=== PATIENT | female | born 1990 | race Caucasian/White ===

== ENCOUNTER 2016-12-19 12:54 | Emergency (ER) | payer BC ==
--- NOTE | 2016-12-19 13:47 | ED ---
Headache - HPI Summary HPI Summary: 26 yr old female who states she is under a lot of stress with relationship. She states she was having trouble driving earlier due to dizziness described as room spinning. She states she has had blurred vision, room spinning and headache. She states she is very anxious as well. She denies prior medical history except for dizziness. No other complaints. Denies palpitations, shortness of breath. Denies feeling like she will pass out. - History Of Current Complaint Chief Complaint: UCGeneralIllness Stated Complaint: HEADACHE ANXIETY Time Seen by Provider: 12/19/16 13:25 Hx Last Menstrual Period: 12/08/16 - Allergies/Home Medications Allergies/Adverse Reactions: Allergies Allergy/AdvReac Type Severity Reaction Status Date / Time Amoxicillin Allergy Hives Verified 12/19/16 13:05 Meperidine [From Demerol HCl] Allergy Hives Verified 12/19/16 13:05 Home Medications: Home Medications Control Pill 1 tab PO DAILY 12/19/16 [History Confirmed 12/19/16] PMH/Surg Hx/FS Hx/Imm Hx - Surgical History Surgery Procedure, Year, and Place: [facility] 2010 Infectious Disease History: No Infectious Disease History: Denies: Traveled Outside the [place] in Last 30 Days - Social History Alcohol Use: Rare Substance Use Type: Reports: None Smoking Status (MU): Never Smoked Tobacco Review of Systems Constitutional: Negative Positive: Blurred Vision Neurological: Other - dizziness like room spinning. Positive: Headache Positive: Anxious All Other Systems Reviewed And Are Negative: Yes Physical Exam Triage Information Reviewed: Yes Vital Signs On Initial Exam: Initial Vitals Temp Pulse Resp BP Pulse Ox 98.2 F 93 20 148/98 99 12/19/16 12:57 12/19/16 12:57 12/19/16 12:57 12/19/16 12:57 12/19/16 12:57 Vital Signs Reviewed: Yes Appearance: Positive: No Pain Distress, Well-Nourished Skin: Positive: Warm Head/Face: Positive: Normal Head/Face Inspection Eyes: Positive: EOMI, MELISSA ENT: Positive: Normal ENT inspection Neck: Positive: Supple, Nontender Respiratory/Lung Sounds: Positive: Other - normal effort Musculoskeletal: Positive: Strength/ROM Intact Neurological: Positive: Sensory/Motor Intact, Alert, Oriented to Person Place, Time, CN Intact II-III, Normal Gait, Speech Normal Psychiatric: Positive: Anxious, Other - tearful - [place] Coma Scale Best Eye Response: 4 - Spontaneous Best Motor Response: 6 - Obeys Commands Best Verbal Response: 5 - Oriented Diagnostics - Vital Signs Vital Signs Temp Pulse Resp BP Pulse Ox 12/19/16 12:57 98.2 F 93 20 148/98 99 - Laboratory Lab Statement: Any lab studies that have been ordered have been reviewed, and results considered in the medical decision making process. Headache Course/Dx - Course Course Of Treatment: 26 yr old with tearfulness, anxiety, and symtpoms of headache, room spinning, blurred vision. The patient refuses to go to the ER for further work up and evaluation. She signed out AMA with risk of stroke, disability, . She states she feels safe at home and does not feel in danger. - Diagnoses Provider Diagnoses: Blurred vision, Headache, Vertigo Discharge - Discharge Plan Condition: Good Disposition: AGAINST MEDICAL ADVICE
[2016-12-19 13:58] VITALS: BP 150/112
== END 2016-12-19 13:51 | disposition left against medical advice (07) ==
LOC: UCCORT 12:54
DX: H53.8 Other visual disturbances (principal); R51 Headache; R42 Dizziness and giddiness
CPT/HCPCS: 99202; G0463

== ENCOUNTER 2017-02-04 08:51 | Emergency (ER) | payer BC ==
[2017-02-04 09:04] VITALS: BP 159/92
[2017-02-04] MEDS ORDERED: predniSONE TAB* 20 MG PO ONE (09:37)
--- NOTE | 2017-02-04 09:37 | UC ---
Skin Complaint HPI - HPI Summary HPI Summary: 26 yo female with worsening rash x 2 days pruritic - History of Current Complaint Chief Complaint: UCRash Time Seen by Provider: 02/04/17 09:28 Stated Complaint: RASH Hx Obtained From: Patient Hx Last Menstrual Period: 02/02/17 Onset/Duration: Gradual Onset, Lasting Days Timing: Constant Onset Severity: Mild Current Severity: Mild Pain Intensity: 0 Pain Scale Used: 0-10 Numeric Location: Other - abd/thighs/left lat chest/right neck Character: Swelling, Pruritus, Redness Aggravating: Nothing Associated Signs & Symptoms: Positive: Rash - Allergy/Home Medications Allergies/Adverse Reactions: Allergies Allergy/AdvReac Type Severity Reaction Status Date / Time Amoxicillin Allergy Hives Verified 02/04/17 08:56 Meperidine [From Demerol HCl] Allergy Hives Verified 02/04/17 08:56 Home Medications: Home Medications Hydrochlorothiazide TAB* [Hydrodiuril TAB*] 12.5 mg PO DAILY 02/04/17 [History Confirmed 02/04/17] Norethindr/Eth Estradiol(Nf) [Lo Loestrin Fe (NF)] 1 tab PO DAILY 02/04/17 [ History Confirmed 02/04/17] Sertraline HCl [Zoloft] 25 mg PO 02/04/17 [History] Review of Systems Constitutional: Negative Skin: Rash Eyes: Negative ENT: Negative Respiratory: Negative Cardiovascular: Negative Gastrointestinal: Negative Genitourinary: Negative Motor: Negative Neurovascular: Negative Musculoskeletal: Negative Neurological: Negative Psychological: Negative All Other Systems Reviewed And Are Negative: Yes PMH/Surg Hx/FS Hx/Imm Hx Previously Healthy: Yes Cardiovascular History: Hypertension Psychological History: Depression - Surgical History Surgical History: Yes Surgery Procedure, Year, and Place: [facility] 2010 - Family History Known Family History: Positive: Hypertension, Diabetes - Social History Alcohol Use: Rare Substance Use Type: None Smoking Status (MU): Never Smoked Tobacco Physical Exam Triage Information Reviewed: Yes Appearance: Well-Appearing, No Pain Distress, Well-Nourished Vital Signs: Initial Vital Signs Temp 97.8 F 02/04/17 08:58 Pulse 80 02/04/17 08:58 Resp 16 02/04/17 08:58 BP 159/92 02/04/17 08:58 Pulse Ox 99 02/04/17 08:58 Vital Signs Reviewed: Yes Eyes: Positive: Conjunctiva Clear ENT: Positive: Hearing grossly normal. Negative: Nasal congestion, Nasal drainage, Trismus, Muffled/hoarse voice Dental: Negative: Abscess @ Neck: Positive: Supple, Nontender, No Lymphadenopathy Respiratory: Positive: Lungs clear, Normal breath sounds, No respiratory distress Cardiovascular: Positive: RRR, No Murmur, Pulses Normal Musculoskeletal: Positive: ROM Intact, No Edema Neurological Exam: Normal Psychological Exam: Normal Skin Exam: Other - (+) dermatographia Course/Dx - Diagnoses Provider Diagnoses: HIVES Discharge - Discharge Plan Condition: Stable Disposition: HOME Prescriptions: Prednisone [Deltasone] 40 mg PO DAILY #10 tab Patient Education Materials: Acute Rash (ED) Referrals: Adry Freeman [facility] [Primary Care Provider] - 3 Days (if not better BP recheck in a few weeks) Additional Instructions: benadryl (OTC) 25 mg 1-2 tablets 4x day as needed for itching may cause drowsiness have you bp rechecked in a few weeks Images Front/Back of Body, Lg ([place]ripp): 1 - rash c/w hives 2 - c/w hives 3 - confluent rash
== END 2017-02-04 09:46 | disposition home or self-care (01) ==
LOC: UCCORT 08:51
DX: L50.9 Urticaria, unspecified (principal); I10 Essential (primary) hypertension; F32.9 Major depressive disorder, single episode, unspecified; Z88.3 Allergy status to other anti-infective agents
CPT/HCPCS: 99212; G0463; J7512